=== PATIENT | female | born 1950 ===

== ENCOUNTER 2023-10-13 13:26 | Emergency (ER) | payer BC, SELFPAY ==
--- NOTE | ~2023-10-13 | XR_ITS ---
EXAMINATION: XR SHOULDER, RIGHT CLINICAL INFORMATION: Injury, pain COMPARISON: None available. TECHNIQUE: Three views of the right shoulder. FINDINGS: There is a transverse fracture through the surgical neck of the humeral head with impaction and anteromedial displacement resulting in overriding. The humeral head component remains aligned with the glenoid fossa. Moderate underlying osteoarthritis. XR/XR shoulder RT min 2V IMPRESSION: Impacted and displaced fracture of the surgical neck of the right humerus.
--- NOTE | ~2023-10-13 | CT_ITS ---
EXAMINATION: CT HEAD WITHOUT CONTRAST CT CERVICAL SPINE WITHOUT CONTRAST CLINICAL INFORMATION: Fall. COMPARISON: There are no prior studies available for comparison. TECHNIQUE: Multidetector CT imaging of the head and cervical spine was performed without the use of intravenous contrast. Coronal and sagittal reformatted images were generated at the technologist workstation. This CT examination was performed using dose optimization techniques as appropriate, variously including the following: *Automated exposure control *Adjustment of mA and/or kV according to patient size (this includes techniques or standardized protocols for targeted exams where dose is matched to indication/reason for exam; i.e. extremities or head) *Use of iterative reconstruction technique DLP: 1306 mGy-cm. FINDINGS: CT head: Some images are degraded by patient motion and beam hardening artifact. There is no evidence of acute intracranial hemorrhage or territorial infarction. No abnormal mass-effect or midline shift is seen. Calloway to white matter differentiation is well preserved. No extra-axial fluid collections are identified. The ventricles and sulci are commensurately prominent consistent with diffuse volume loss. There are scattered areas of low-attenuation in the periventricular and subcortical white matter, most consistent with chronic microvascular ischemic changes. There are areas of low attenuation in the thalami and subinsular regions bilaterally consistent with chronic lacunar infarcts. A 0.9 cm area of low-attenuation in the anterior right basal ganglia is most consistent with a prominent perivascular space, although a large lacunar infarct may also have this appearance the soft tissues are unremarkable.. There are no acute osseous findings. There is a 1.4 cm exostosis along the inner table of the right frontal bone to the right of midline. The mastoid air cells are well-aerated. There is minimal mucoperiosteal thickening in the left maxillary sinus. CT cervical spine: There is mild dextroscoliosis in the lower cervical spine. On the sagittal reformats there is straightening of the normal cervical lordosis. There is narrowing of intervertebral disc height at multiple levels, most severe at C5-C6 and C6-C7. Vertebral body heights are maintained and no fractures are demonstrated. The lateral masses of C1 and C2 are normally aligned and the dens is intact. There are severe arthropathic changes of the left atlantoaxial joint. There is multilevel facet arthropathy; there is partial fusion of the right C2-C3 and left C7-T1 facets. The paravertebral structures are unremarkable. The visualized lung apices are clear. CT/CT cervical spine wo IV con IMPRESSION: CT Head: 1. There are no acute bleeds or territorial infarcts. No masses are demonstrated. 2. There is diffuse volume loss and there are chronic microvascular ischemic changes and lacunar infarcts. 3. A 0.9 cm area of low-attenuation in the anterior right basal ganglia is most consistent with a prominent perivascular space, although a large acute infarct may also have this appearance. CT Cervical Spine: 1. There are no acute fractures or subluxations. 2. There are multilevel spondylitic and facet arthropathic changes.
[2023-10-13 13:41] VITALS: BP 136/82; BP 152/67; PULSE 70; PULSE 76; RESP 22; TEMP 36.6; O2SAT 97; O2SAT 98; BMI 41.1
--- NOTE | 2023-10-13 13:53 | ED_ITS ---
HPI - General Adult General Chief complaint: Fall Stated complaint: FALL,RT SHLDR PAIN,-THINNERS,-COLLAR Time Seen by Provider: 10/13/23 13:52 Source: patient and EMS Mode of arrival: EMS Limitations: no limitations History of Present Illness HPI narrative: Patient is a 72 year old assigned female at with no reported medical history presenting to the emergency department today with right shoulder pain. Patient states that she was at a hair salon when she fell getting out of the chair and landed on her right shoulder. Patient denies any head strike, loss of consciousness, or use of anti-coagulants. Patient denies any dizziness, lightheadedness, abdominal pain, nausea, vomiting, fever, chills, blurry vision, double vision, loss of vision, chest pain, difficulty breathing, shortness of breath, back pain, night sweats, pain with urination, increased urinary frequency, increased urinary urgency, blood in her urine or stool, syncope or a near syncopal episode, bowel incontinence, bladder incontinence, bowel retention, bladder retention, or any other complaints at this time. Onset (ago): minute(s) Location: right and upper extremity Radiation: non-radiation Severity: moderate Severity scale (1-10): 5 Quality: aching and dull Pain Consistency: constant Relieving factors: immobilization Associated symptoms: denies other symptoms Treatments prior to arrival: none Related Data Allergies Allergy/AdvReac Type Severity Reaction Status Date / Time No Known Allergies Allergy Verified 10/13/23 13:50 Review of Systems Constitutional: Constitutional: Reports no additional constitutional complaints, Denies chills, Denies fever(s) and Denies night sweats Eyes: Eyes: Reports no additional eye complaints, Denies blurry vision, Denies change in vision, Denies diplopia, Denies eye discharge, Denies loss of vision and Denies eye pain ENT: Denies dizziness Cardiovascular: Cardiovascular: Reports no additional cardiovascular complaints, Denies chest pain, Denies lightheadedness, Denies Loss of Consciousness and Denies dyspnea Respiratory: Respiratory: Reports no additional respiratory complaints and Denies dyspnea Gastrointestinal: Gastrointestinal: Reports no additional gastrointestinal complaints, Denies abdominal pain, Denies melena, Denies hematochezia, Denies change in bowel habits and Denies change in stool character Genitourinary: Genitourinary: Denies hematuria, Denies urinary frequency, Denies dysuria, Denies urinary incontinence, Denies urinary hesitancy and Denies urinary urgency Musculoskeletal: Musculoskeletal: Reports no additional musculoskeletal complaints, Denies numbness and Denies tingling Comments: right shoulder pain Neurologic: Denies dizziness, Denies loss of vision, Denies numbness and Denies tingling Psychiatric: Psychiatric: Reports no additional psychiatric complaints Endocrine: Endocrine: Reports no additional endocrine complaints Hematologic/Lymphatic: Hematologic/Lymphatic: Reports no additional hematologic/lymphatic complaints Allergic/Immunologic: Allergic/Immunologic: Reports no additional allergic/immunologic complaints [facility] Past Medical History Attestation statement: The following information was validated with the patient. Source: old records reviewed and nursing notes reviewed Social History Social History Advance Directives: No Physical Exam ED Vital Signs: Vital Signs - 24 hr 10/13/23 13:41 Temperature 97.9 F Pulse Rate 76 Respiratory Rate 22 H Blood Pressure 152/67 H Pulse Oximetry 98 Oxygen Delivery Method Room Air BMI result Body Mass Index 41.1 Const General: cooperative, no acute distress, alert and awake Nutritional Appearance: well nourished Orientation/consciousness: patient oriented x3 Limitations: no limitations HENMT Head: Yes normal to inspection and Yes atraumatic Ears: hearing grossly normal bilaterally and external ears normal General nose exam: Normal external nose present, no nasal discharge noted and no epistaxis Face and sinus: Yes normal facial exam, No abrasion and No laceration Mouth: Normal oral and palatal mucosa present, no drooling and no muffled voice Eyes General: appearance normal, both eyes and all related structures Periorbital: periorbital findings normal Eyelids: Yes eyelids normal Conjunctivae: conjunctivae normal Pupils: Equal, round and reactive pupils present EOM: EOMs intact bilaterally Neck Neck: Yes normal visual inspection, Yes full ROM and Yes no lymphadenopathy Chest Chest palpation & inspection: normal inspection of the chest Resp Effort & Inspection: normal respiratory effort and able to speak in complete sentences GI Inspection: Yes normal to inspection Neuro General: patient oriented x3 and moves all extremities Cranial nerves: Yes Equal, round and reactive pupils present Cognition (Neuro): normal cognition Motor exam (neuro): 5/5 motor strength present throughout Sensory Exam: Normal double simultaneous stimulation for sensation Coordination: [id number] test normal Extrem Other: limited ROM of the right shoulder secondary to pain General: Yes capillary refill normal Psych Appearance: grossly normal Mental Status: mental status grossly normal Affect: normal affect Attitude: cooperative Thought process: Normal thought process present Thought content: Normal thought content present Insight: Good insight present (Psych) Medications Administered Discontinued Medications Generic Name Dose Route Start Last Admin Trade Name Dayoq PRN Reason Stop Dose Admin Ketorolac Tromethamine 15 mg 10/13/23 14:39 10/13/23 14:56 Ketorolac Tromethamine 15 Mg/Ml Vial IM 10/13/23 14:40 15 mg ONCE ONE Administration Procedures Orthopedic Splinting/Casting Injury #1: Side: right Upper Extremity Injury Location: shoulder Upper Extremity Immobilizer: sling/shoulder immobilizer Medical Decision Making Medical Decision Making MDM Narrative: Patient is a 72 year old assigned female at with no reported medical history presenting to the emergency department today with right shoulder pain. Patient's physical exam was as noted in the physical exam portion of this note. Patient's right shoulder x-ray showed a humerus fracture. Patient's CT head and C-Spine showed no acute process. The CT head did mention a 0.9cm area of low- attentuation in the anterior right basal ganglia that is most consistent with a prominent perivascular space. The radiologist goes on to say that a large acute infarct may also have that appearance. Patient's current clinical presentation is not consistent with a brain infarct. I spoke to the orthopedic team who recommended the patient be placed in a sling and follow up on an outpatient basis. I explained my physical exam findings as well as all test results to the patient. I answered all questions asked by the patient. Patient's right shoulder was placed in a sling, without incident. Patient's PMS was intact prior to and after sling placement. I stressed the importance of the patient taking her medication as prescribed. I stressed the importance of the patient following up with her primary care provider and an orthopedic provider. I stressed the importance of the patient returning to the emergency department immediately if her symptoms were to worsen or if she were to develop any dizziness, shortness of breath, difficulty breathing, chest pain, blurry vision, loss of vision, nausea, vomiting, abdominal pain, fever, chills, back pain, or any other complaints. Patient verbalized agreement and understanding with this treatment plan and discharge. Differential Diagnosis Differential Diagnoses: The differential diagnosis associated with the presentation includes Right humerus fracture Fall Shoulder pain Admission/Observation Consideration of admission/observation: Escalation of care including admission/observation considered Patient would have been admitted to the hospital had her work up had any findings where hospital admission was appropriate and her clinical presentation warranted hospital admission. Consult Healthcare Provider Management of the patient was discussed with: Yeast Culture Developer (spoke to the orthopedic provider as noted in the MDM Rationale portion of this note.) Independent Interpretation I performed an independent interpretation of an: Plain X-Ray and CT Scan Interpretation: My interpretation is in agreement with the radiologist's impression of these imaging studies. - EXAMINATION: CT HEAD WITHOUT CONTRAST CT CERVICAL SPINE WITHOUT CONTRAST CLINICAL INFORMATION: Fall. COMPARISON: There are no prior studies available for comparison. TECHNIQUE: Multidetector CT imaging of the head and cervical spine was performed without the use of intravenous contrast. Coronal and sagittal reformatted images were generated at the technologist workstation. This CT examination was performed using dose optimization techniques as appropriate, variously including the following: *Automated exposure control *Adjustment of mA and/or kV according to patient size (this includes techniques or standardized protocols for targeted exams where dose is matched to indication/reason for exam; i.e. extremities or head) *Use of iterative reconstruction technique DLP: 1306 mGy-cm. FINDINGS: CT head: Some images are degraded by patient motion and beam hardening artifact. There is no evidence of acute intracranial hemorrhage or territorial infarction. No abnormal mass-effect or midline shift is seen. Calloway to white matter differentiation is well preserved. No extra-axial fluid collections are identified. The ventricles and sulci are commensurately prominent consistent with diffuse volume loss. There are scattered areas of low-attenuation in the periventricular and subcortical white matter, most consistent with chronic microvascular ischemic changes. There are areas of low attenuation in the thalami and subinsular regions bilaterally consistent with chronic lacunar infarcts. A 0.9 cm area of low-attenuation in the anterior right basal ganglia is most consistent with a prominent perivascular space, although a large lacunar infarct may also have this appearance the soft tissues are unremarkable.. There are no acute osseous findings. There is a 1.4 cm exostosis along the inner table of the right frontal bone to the right of midline. The mastoid air cells are well-aerated. There is minimal mucoperiosteal thickening in the left maxillary sinus. CT cervical spine: There is mild dextroscoliosis in the lower cervical spine. On the sagittal reformats there is straightening of the normal cervical lordosis. There is narrowing of intervertebral disc height at multiple levels, most severe at C5-C6 and C6-C7. Vertebral body heights are maintained and no fractures are demonstrated. The lateral masses of C1 and C2 are normally aligned and the dens is intact. There are severe arthropathic changes of the left atlantoaxial joint. There is multilevel facet arthropathy; there is partial fusion of the right C2-C3 and left C7-T1 facets. The paravertebral structures are unremarkable. The visualized lung apices are clear. CT/CT head/brain wo IV con IMPRESSION: CT Head: 1. There are no acute bleeds or territorial infarcts. No masses are demonstrated. 2. There is diffuse volume loss and there are chronic microvascular ischemic changes and lacunar infarcts. 3. A 0.9 cm area of low-attenuation in the anterior right basal ganglia is most consistent with a prominent perivascular space, although a large acute infarct may also have this appearance. CT Cervical Spine: 1. There are no acute fractures or subluxations. 2. There are multilevel spondylitic and facet arthropathic changes. Dictated By: ANGEL LUIS BLANC MD Signed By: Electronically signed by ANGEL LUIS BLANC MD 10/13/23 1546 EXAMINATION: XR SHOULDER, RIGHT CLINICAL INFORMATION: Injury, pain COMPARISON: None available. TECHNIQUE: Three views of the right shoulder. FINDINGS: There is a transverse fracture through the surgical neck of the humeral head with impaction and anteromedial displacement resulting in overriding. The humeral head component remains aligned with the glenoid fossa. Moderate underlying osteoarthritis. XR/XR shoulder RT min 2V IMPRESSION: Impacted and displaced fracture of the surgical neck of the right humerus. Dictated By: Marty Meade MD Signed By: Electronically signed by Marty Meade MD 10/13/23 0284 Radiology Impression Discussion of test interpretation with radiology: I have reviewed the radiologist's reading. Independent Historian Clinical information obtained from an independent historian. History obtained from or confirmed by: EMS (EMS provided additional history and confirmed the history provided by the patient.) Critical Care Time Critical Care Time Critical Care Time: Yes Total Critical Care Time: 35 Attestation: I spent 35 minutes of Critical Care Time with this patient. This does not include time spent on separately reported billable procedures. Discharge Plan Discharge Clinical Impression: Fall, Fracture, humerus Patient Disposition: Home, Self-Care Instructions: Fall Prevention (ED), How to Use a Sling (ED), Arm Fracture in Adults (ED) Additional Instructions: Follow up with your primary care provider and an orthopedic provider. Return to the emergency department immediately if your symptoms worsen or if you develop any dizziness, shortness of breath, difficulty breathing, chest pain, blurry vision, loss of vision, nausea, vomiting, abdominal pain, fever, chills, back pain, or any other complaints. Referrals: [facility] Family Medicine [Provider Group] (Call to establish and follow up with a primary care provider. If you already have a primary care provider, please follow up with them.) [facility] Primary CareNellie [Provider Group] (Call to establish and follow up with a primary care provider. If you already have a primary care provider, el fregoso follow up with them.) [facility] Primary Care[facility] [Provider Group] (Call to establish and follow up with a primary care provider. If you already have a primary care provider, please follow up with them.) [facility] [Provider Group] (Call to establish and follow up with an orthopedic provider.) Print Language: Filipino
[2023-10-13] MEDS: Ketorolac Tromethamine 15 MG/ML VIAL IM (14:56)
== END 2023-10-13 17:15 | disposition home or self-care (01) ==
PROVIDERS: Emergency Provider Emergency Medicine
DX: S42.211A Unspecified displaced fracture of surgical neck of right humerus, initial encounter for closed fracture (principal); W07.XXXA Fall from chair, initial encounter; Y93.89 Activity, other specified; Y92.59 Other trade areas as the place of occurrence of the external cause; Y99.9 Unspecified external cause status
CPT/HCPCS: 70450; 72125; 73030; 96372; 99283; 99284; J1885